=== PATIENT | male | born 1980 | race African-American/Black ===

== ENCOUNTER → 2017-07-09 | Day surgery (SDC) | payer OTHER ==
[~2017-07-09] MED LIST: BACTRIM DS TAB1 EACH PO; LORTAB 5-325 M1 EACH PO
--- NOTE | ~2017-07-09 | OR ---
Unit #: [id number] #: [id number] Patient: LYN KOENIG [id number] [facility]. [address] [place], [place] [address] [id number] O MR#: [id number] NAME: LYN KOENIG ROOM: Date of Procedure: 07/09/2017 Admission Date: 07/09/2017 Surgeon: Kyree Hernandez Jr., M.D. : 1980 Attending Physician: Kyree Hernandez Jr., M.D. OPERATIVE REPORT INDICATIONS FOR PROCEDURE The patient is a 37-year-old black male, recently presented to the office complaining of chronic infected cyst of the right cheek. It recently was I and D'd and packed and it was felt that he should have this removed. He has had a full course of antibiotics. He is brought in this time for removal of this under local anesthesia. He understands the procedure including the risks, including that of recurrence, infection, and chronic pain, and injury to the facial nerve and consents. PREOPERATIVE DIAGNOSIS Chronic inflamed infected cyst of the right cheek. POSTOPERATIVE DIAGNOSIS Chronic inflamed infected cyst of the right cheek, noting approximately a 2 cm cyst. This did extend down deep towards the buccinator. ANESTHESIA 1% Xylocaine with epinephrine locally. PROCEDURE PERFORMED Excision of chronic inflamed cyst of the right cheek. DESCRIPTION OF PROCEDURE The patient was positioned in the supine position. After being prepped and draped in routine fashion, he was anesthetized locally in the area of the cyst with 1% Xylocaine with epinephrine. An elliptical incision was made around the cyst being totally excised from the surrounding tissue and down to the base of it. There was a small amount of a chronic inflamed tissue at the base, which was likewise removed. There was no evidence of any injury or involvement of the facial nerve. After all the chronic infected tissue along with the cyst was removed, the wound was irrigated. Hemostasis was achieved with Bovie cautery. Specimen sent to pathology and the deeper tissue approximated with interrupted 3-0 Vicryl sutures. Skin edges approximated with continuous 5-0 nylon suture. Ointment was applied externally. Estimated blood loss minimal. No drains were used. No complications. The patient was discharged in satisfactory condition. Dictated by... Kyree Hernandez Jr., M.D. JMB/modl Unit #: [id number] #: [id number] Patient: LYN KOENIG TD: 07/09/2017 14:25 JOB #: [id number] CC: Petra Cintron M.D. OPERATIVE REPORT Page 1 of 1 X Kyree Hernandez MD X PROCEDURE OPERATIVE NOTE
== END | disposition home or self-care (01) ==
LOC: CSUR 11:18
DX: L72.0 Epidermal cyst (principal); L08.9 Local infection of the skin and subcutaneous tissue, unspecified; J45.909 Unspecified asthma, uncomplicated; F17.200 Nicotine dependence, unspecified, uncomplicated; Z88.0 Allergy status to penicillin; Z79.899 Other long term (current) drug therapy
CPT/HCPCS: 88304